=== PATIENT | female | born 1965 | race Caucasian/White ===

== ENCOUNTER 2023-11-16 09:53 | Day surgery (SDC) | payer OTHER ==
[2023-11-09 11:14] VITALS: BMI 28.3
[2023-11-16] MEDS ORDERED: LIDOCAINE HCL/PF 2% SDV 5ML VIAL ONE (10:43)
[2023-11-16] MEDS ORDERED: PROPOFOL 80 ML ONE (10:43)
[2023-11-16 11:53] VITALS: RESP 16; TEMP 97.6
[2023-11-16 11:59] VITALS: BP 115/74; PULSE 76
== END 2023-11-16 12:21 | disposition home or self-care (01) ==
LOC: FASU-ENDO 09:53
PROVIDERS: ATTEND Internal Medicine Gastroenterology
PROC: 0DB98ZX Excision of Duodenum, Via Natural or Artificial Opening Endoscopic, Diagnostic (ICD-10-PCS; 2023-11-16)
PROC: 0DB68ZX Excision of Stomach, Via Natural or Artificial Opening Endoscopic, Diagnostic (ICD-10-PCS; 2023-11-16)
PROC: 0DBN8ZX Excision of Sigmoid Colon, Via Natural or Artificial Opening Endoscopic, Diagnostic (ICD-10-PCS; principal; 2023-11-16 11:12)
DX: R19.5 Other fecal abnormalities (principal); D12.5 Benign neoplasm of sigmoid colon; D01.0 Carcinoma in situ of colon; K29.70 Gastritis, unspecified, without bleeding; B96.81 Helicobacter pylori [H. pylori] as the cause of diseases classified elsewhere
CPT/HCPCS: 88305-TC; 88342-TC